=== PATIENT | female | born 1995 | race Caucasian/White ===

== ENCOUNTER → 2018-08-05 | Outpatient (CLI) | payer SELFPAY ==
[~2018-08-05] MED LIST: CODACE30 PO; CYCL10 PO; IBUP400; IBUP600 PO; IBUP800 PO; NEXPLANON68 MG SQ; RXCODACET PO; Veetids 500500 MG PO
[2018-08-07 15:07] LABS: HPV 16 Negative (Negative); HPV 18 Negative (Negative); HPV OTHER HR TYPES Positive (Negative)
== END | disposition home or self-care (01) ==
LOC: LAB SHORT 17:15 → LAB 17:15
PROVIDERS: Nurse Practitioner Family
DX: Z01.419 Encounter for gynecological examination (general) (routine) without abnormal findings (principal); Z01.411 Encounter for gynecological examination (general) (routine) with abnormal findings
CPT/HCPCS: 87624; G0145

== ENCOUNTER → 2019-08-18 | Outpatient (CLI) | payer OTHER ==
[2019-08-20 14:07] LABS: HPV 16 Negative (Negative); HPV 18 Negative (Negative); HPV OTHER HR TYPES Negative (Negative)
== END | disposition home or self-care (01) ==
LOC: LAB SHORT 16:20 → LAB EV 16:20
PROVIDERS: Nurse Practitioner Family
DX: Z01.411 Encounter for gynecological examination (general) (routine) with abnormal findings (principal); N76.0 Acute vaginitis
CPT/HCPCS: 87070; 87205; 87624; G0145

== ENCOUNTER → 2019-12-31 | Outpatient (CLI) | payer OTHER | LOC: LAB EV 09:30 → LAB SHORT 09:30 | DX: J02.9 Acute pharyngitis, unspecified (principal) | CPT/HCPCS: 87081 ==

== ENCOUNTER 2021-04-07 00:07 | Emergency (ER) | payer OTHER ==
[~2021-04-07] VITALS: Ht 165.1 cm; Wt 99.8 kg
[2021-04-07] MEDS ORDERED: RIZATRIPTAN10 M3 PO (00:28)
[2021-04-07] MEDS ORDERED: KAPSPARGO SPRIN50 MG PO (00:28)
[2021-04-07] MEDS ORDERED: CYCL10 PO (01:24)
== END 2021-04-07 01:33 | disposition home or self-care (01) ==
LOC: ER 00:07
DX: S29.011A Strain of muscle and tendon of front wall of thorax, initial encounter (principal); Z79.899 Other long term (current) drug therapy; Z88.8 Allergy status to other drugs, medicaments and biological substances; X58.XXXA Exposure to other specified factors, initial encounter
CPT/HCPCS: 71101; 99283-25; A9270

== ENCOUNTER → 2023-02-02 | Outpatient (CLI) | payer OTHER ==
[~2023-02-02] MED LIST changes: +KAPSPARGO SPRIN50 MG PO; +RIZATRIPTAN10 M3 PO
== END | disposition home or self-care (01) ==
LOC: LAB SHORT 14:33 → LAB 14:33
DX: J02.9 Acute pharyngitis, unspecified (principal)
CPT/HCPCS: 87081

== ENCOUNTER → 2023-11-29 | Outpatient (CLI) | payer OTHER | LOC: LAB SHORT 14:18 → LAB 14:18 | PROVIDERS: Physician Assistant | DX: Z01.419 Encounter for gynecological examination (general) (routine) without abnormal findings (principal) | CPT/HCPCS: G0123 ==

== ENCOUNTER → 2024-08-24 | Outpatient (CLI) | payer OTHER | END | disposition home or self-care (01) | LOC: LAB 10:32 → LAB SHORT 10:32 | DX: R10.13 Epigastric pain (principal) | CPT/HCPCS: 87338 ==

== ENCOUNTER 2024-11-29 20:56 | Emergency (ER) | payer OTHER ==
[~2024-11-29] VITALS: Ht 167.6 cm; Wt 90.7 kg
[2024-11-29 21:38] LABS: BASOPHILS ABSOLUTE AUTO 0.02 K/mm3 (0.00-0.23); BASOPHILS PERCENT AUTO 0 % (0-2); EOSINOPHILS ABSOLUTE AUTO 0.06 K/mm3 (0.00-0.68); EOSINOPHILS PERCENT AUTO 1 % (0-6); Hematocrit 40.9 % (33.0-51.0); Hemoglobin 14.3 g/dL (11.5-16.0); IMMATURE GRAN ABSOLUTE AUTO 0.02 K/mm3 (0.00-0.10); IMMATURE GRAN PERCENT AUTO 0 % (0-1); LYMPHOCYTES ABSOLUTE AUTO 2.83 K/mm3 (0.84-5.20); LYMPHOCYTES PERCENT AUTO 47 % (21-46); MONOCYTES ABSOLUTE AUTO 0.47 K/mm3 (0.16-1.47); MONOCYTES PERCENT AUTO 8 % (4-13); Mean Corpuscular HGB 31.9 pg (26.0-34.0); Mean Corpuscular Volume 91 fL (80-100); Mean Platelet Volume 8.5 fL (9.1-12.4); NEUTROPHILS ABSOLUTE AUTO 2.68 K/mm3 (1.96-9.15); NEUTROPHILS PERCENT AUTO 44 % (41-73); Platelet Count 286 K/mm3 (150-400); RDW Coefficient Variation 11.7 % (11.7-14.2); Red Blood Cell Count 4.48 M/mm3 (3.80-5.20); White Blood Cell Count 6.08 K/mm3 (4.00-11.30)
[2024-11-29 22:18] LABS: Albumin, Blood 4.2 g/dL (3.4-5.0); Albumin/Globulin Ratio 1.1 (0.8-1.8); Bilirubin, Total 0.3 mg/dL (0.1-1.0); Bun/Creatinine Ratio 11.3 (12.0-20.0); Calcium, Blood 9.2 mg/dL (8.5-10.1); Creatinine, Blood 0.8 mg/dL (0.40-1.00); Globulin, Blood 3.9 g/dL (2.2-4.0); Potassium, Blood 3.3 mmol/L (3.5-5.5); Total Protein, Blood 8.1 g/dL (6.4-8.2)
[2024-11-30 00:51] VITALS: BP 165/85
== END 2024-11-30 00:55 | disposition home or self-care (01) ==
LOC: ER 20:56
PROVIDERS: Student in an Organized Health Care Education/Training Program
DX: O20.9 Hemorrhage in early pregnancy, unspecified (principal); Z79.899 Other long term (current) drug therapy; Z3A.01 Less than 8 weeks gestation of pregnancy
CPT/HCPCS: 76801; 76817; 80053; 84702; 85025; 86900; 86901; 99284-25

== ENCOUNTER 2024-12-02 17:48 | Emergency (ER) | payer OTHER ==
[~2024-12-02] VITALS: Ht 162.6 cm; Wt 91.6 kg
[2024-12-02 18:13] VITALS: BP 159/102
[2024-12-02] MEDS ORDERED: RX Prepack 6 Tabs Oxycodone 5mg UD ONE (18:20)
== END 2024-12-02 18:30 | disposition home or self-care (01) ==
LOC: ER 17:48
DX: O20.0 Threatened abortion (principal); O26.899 Other specified pregnancy related conditions, unspecified trimester; G43.909 Migraine, unspecified, not intractable, without status migrainosus; R10.2 Pelvic and perineal pain; R31.9 Hematuria, unspecified; Z79.899 Other long term (current) drug therapy; Z3A.01 Less than 8 weeks gestation of pregnancy; Z88.8 Allergy status to other drugs, medicaments and biological substances
CPT/HCPCS: 84702; 99283; A9270

== ENCOUNTER 2024-12-14 12:33 | Inpatient (IN) | payer OTHER ==
[2024-12-14] VITALS (16 sets, daily range): BP systolic 112–138; BP diastolic 59–80
[~2024-12-14] VITALS: Ht 162.6 cm; Wt 91.2 kg
[2024-12-14] MEDS ORDERED: Morphine Sulfate 4 MG/1 ML Injection IV ONE ×2 (14:35→16:35)
[2024-12-14] MEDS ORDERED: Ondansetron HCl 2 MG / ML 2ML Vial IV ONE (14:35)
[2024-12-14] MEDS ORDERED: NS 1,000 ML IV SCH (14:35)
[2024-12-14 14:55] LABS: BASOPHILS ABSOLUTE AUTO 0.03 K/mm3 (0.00-0.23); BASOPHILS PERCENT AUTO 0 % (0-2); EOSINOPHILS ABSOLUTE AUTO 0.01 K/mm3 (0.00-0.68); EOSINOPHILS PERCENT AUTO 0 % (0-6); Hematocrit 36.2 % (33.0-51.0); Hemoglobin 12.5 g/dL (11.5-16.0); IMMATURE GRAN ABSOLUTE AUTO 0.06 K/mm3 (0.00-0.10); IMMATURE GRAN PERCENT AUTO 0 % (0-1); LYMPHOCYTES ABSOLUTE AUTO 1.32 K/mm3 (0.84-5.20); LYMPHOCYTES PERCENT AUTO 10 % (21-46); MONOCYTES ABSOLUTE AUTO 0.53 K/mm3 (0.16-1.47); MONOCYTES PERCENT AUTO 4 % (4-13); Mean Corpuscular HGB 32.2 pg (26.0-34.0); Mean Corpuscular HGB Conc 34.5 g/dL (31.5-36.5); Mean Corpuscular Volume 93 fL (80-100); Mean Platelet Volume 8.9 fL (9.1-12.4); NEUTROPHILS ABSOLUTE AUTO 11.83 K/mm3 (1.96-9.15); NEUTROPHILS PERCENT AUTO 86 % (41-73); Platelet Count 301 K/mm3 (150-400); RDW Coefficient Variation 12.5 % (11.7-14.2); RDW Standard Deviation 42.6 fL (35.1-46.3); Red Blood Cell Count 3.88 M/mm3 (3.80-5.20); White Blood Cell Count 13.78 K/mm3 (4.00-11.30)
[2024-12-14] MEDS ORDERED: Lactated Ringer's 1,000 ML IV SCH ×2 (15:50→19:10)
[2024-12-14 15:52] LABS: Albumin, Blood 3.8 g/dL (3.4-5.0); Albumin/Globulin Ratio 1.1 (0.8-1.8); Bilirubin, Total 0.5 mg/dL (0.1-1.0); Bun/Creatinine Ratio 14.2 (12.0-20.0); Calcium, Blood 8.9 mg/dL (8.5-10.1); Creatinine, Blood 0.77 mg/dL (0.40-1.00); Globulin, Blood 3.6 g/dL (2.2-4.0); Potassium, Blood 3.5 mmol/L (3.5-5.5); Total Protein, Blood 7.4 g/dL (6.4-8.2)
[2024-12-14] MEDS ORDERED: propofoL 20 ML IV ONE (17:43)
[2024-12-14] MEDS ORDERED: Rocuronium Bromide 10 MG/ML 5ML Injection IV ONE (17:43)
[2024-12-14] MEDS ORDERED: Lidocaine HCl 2% 20 ML MDV ONE (17:43)
[2024-12-14] MEDS ORDERED: FentaNYL Citrate 50 MCG/ML 2 ML Injection ONE ×3 (17:43→19:20)
[2024-12-14] MEDS ORDERED: Bupivacaine 0.5% HCl 5 MG/ML 30MLVIAL ONE (17:47)
[2024-12-14] MEDS ORDERED: SuccINYLCHOLINE Chloride 100 MG/5 ML 5MLSYR ONE (18:02)
[2024-12-14] MEDS ORDERED: Dexamethasone Sod Phos 10 MG/ML 1ML VIAL ONE (18:12)
[2024-12-14] MEDS ORDERED: Neostigmine Methylsulfate 5MG/5ML SYR ONE (18:39)
[2024-12-14] MEDS ORDERED: Glycopyrrolate 0.2 MG/ML 5ML VIAL ONE (18:39)
[2024-12-14] MEDS ORDERED: Ondansetron HCl 2 MG / ML 2ML Vial ONE (18:39)
[2024-12-14] MEDS ORDERED: Sugammadex Sodium 200 MG/2ML SDV (100 MG/ML) ONE (18:44)
[2024-12-14] MEDS ORDERED: Ketorolac Tromethamine 30mg Vial ONE (19:07)
[2024-12-14] MEDS ORDERED: Ondansetron 4 MG TAB PO PRN (19:10)
[2024-12-14] MEDS ORDERED: FLU VACC TS2024-25(6MOS UP)/PF 45 MCG/0.5 ML SYRINGE IM ONE (19:10)
[2024-12-14] MEDS ORDERED: Metoclopramide HCl 5MG / ML 2ML Vial IV PRN (19:10)
[2024-12-14] MEDS ORDERED: Acetaminophen 325 MG TABLET PO PRN (19:10)
[2024-12-14] MEDS ORDERED: Metoclopramide HCl 10 MG Tab PO PRN (19:10)
[2024-12-14] MEDS ORDERED: Ondansetron HCl 2 MG / ML 2ML Vial IV PRN (19:10)
[2024-12-14] MEDS ORDERED: Simethicone 80 MG Chew PO PRN (19:15)
[2024-12-14] MEDS ORDERED: Ketorolac Tromethamine 30mg Vial IV PRN ×2 (19:15→19:40)
[2024-12-14] MEDS ORDERED: HYDROcodone 5-APAP 325 TAB PO PRN (19:15)
[2024-12-14] MEDS ORDERED: HYDROmorphone HCl/Pf 1MG SYR IV PRN (19:15)
--- NOTE | 2024-12-14 21:18 | NUR ---
2049- PT UP TO RESTROOM TO TRY TO VOID, UNABLE TO VOID AT THIS TIME BUT DOES NOT FEEL LIKE BLADDER IS FULL AND DENIES STRONG URGE TO VOID, PT HAS DRANK APPROX 15 OZ OF JUICE AND WATER SINCE ARRIVAL, WILL FINISH OUT LR AND CONTINUE TO ENCOURAGE PO HYDRATION. DR FRANK ON UNIT AND UPDATED, PLAN TO DC HOME TONIGHT AFTER PATIENT VOIDS IF SHE PREFERS, SHE MAY CHOOSE TO STAY OVERNIGHT.
--- NOTE | 2024-12-14 23:19 | NUR ---
PT HAS DECIDED SHE WANTS TO STAY THE NIGHT, SHE IS WORRIED HER DOG WILL BUMP HER INCISIONS AND WOULD LIKE TO WAIT AWHILE LONGER BEFORE GOING HOME, PREVIOSULY OK'D BY DR FRAKN IF PATIENT DID NOT FEEL UP TO GOING HOME TONIGHT SHE MAY STAY OVERNIGHT FOR OBS.
[2024-12-15] MEDS ORDERED: PRENATAL TABLE1 EAC2 PO (00:08)
[2024-12-15 04:28] VITALS: BP 127/69
[2024-12-15 07:34] VITALS: BP 119/61
--- NOTE | 2024-12-15 08:15 | NUR ---
d/c home with instructions
== END 2024-12-15 08:20 | disposition home or self-care (01) | DRG 819 ==
LOC: ER 12:33 → BC 12:34 → SURS 12-15 06:20 → BC 12-15 06:33
PROVIDERS: Student in an Organized Health Care Education/Training Program; ADMIT Obstetrics & Gynecology
PROC: 10T24ZZ Resection of Products of Conception, Ectopic, Percutaneous Endoscopic Approach (ICD-10-PCS; principal; 2024-12-15)
PROC: 0UT64ZZ Resection of Left Fallopian Tube, Percutaneous Endoscopic Approach (ICD-10-PCS; 2024-12-15)
DX: O00.90 Unspecified ectopic pregnancy without intrauterine pregnancy (principal); O36.80X0 Pregnancy with inconclusive fetal viability, not applicable or unspecified; G43.909 Migraine, unspecified, not intractable, without status migrainosus; Z79.899 Other long term (current) drug therapy; Z88.8 Allergy status to other drugs, medicaments and biological substances; Z98.890 Other specified postprocedural states; Z28.21 Immunization not carried out because of patient refusal
CPT/HCPCS: 36415; 76801; 76817; 80053; 84702; 85025; 86850; 86900; 86901; 86923; 88305; 96374; 96375; 96376; 99285-25; A9270; J0330; J1100; J1885; J2270; J2405; J2704; J2710; J3010; J7030; J7120